=== PATIENT | female | born 1945 | race Caucasian/White ===

== ENCOUNTER → 2016-09-25 | Day surgery (SDC) | payer MEDICARE, OTHER ==
[~2016-09-25] MED LIST: DEXAMETHASONE SOD PHOS 4 MG/ML VIAL ONE; EPINEPHrine HCL (1:1000) 1 MG/ML VIAL ONE; LACTATED RINGER'S 1000 ML INJ 1,000 ML ONE; MIDAZOLAM HCL 2 MG/2 ML VIAL ONE; MOXIFLOXACIN 0.5% OPHT SOLN 3 ML BTL ONE; ONDANSETRON HCL 4 MG/2 ML VIAL IV PUSH ONE; PHENYLEPHRINE HCL 10% OPTH SOLN 5 ML BTL ONE; PROPOFOL 200 MG/20 ML AMP IV ONE; SODIUM CHLORIDE 0.9% INJ 10 ML ONE; TETRACAINE 0.5% OPTH SOLN 15 ML BTL ONE; TOBRAMYCIN/DEXAMETHASONE OPTH OINT 3.5 GM TUBE ONE; TRIAMCINOLONE ACETONIDE 40 MG/ML VIAL ONE; ceFAZolin INJ 1,000 MG VIAL ONE; prednisoLONE ACETATE 1% OPHT SUSP 5 ML BTL ONE
--- NOTE | 2016-09-26 20:24 | TN ---
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 PROCEDURE Pars plana vitrectomy, endolaser, anterior chamber reconstruction and placement of sulcus, posterior chamber intraocular lens right eye. IMPLANTS: MA60 AC, 22.0 diopter power. COMPLICATIONS: None. BLOOD LOSS: Less than 1 cc. ANESTHESIA: General. Dr. Last. INDICATIONS FOR PROCEDURE: This is a delightful patient who presented with difficult vision in her right eye. The patient has been aphakic and desired for surgical correction in an attempt to improve vision. The patient understands the risks, benefits and alternatives to surgery and cannot tolerate other corrective means. PROCEDURE NOTE After informed consent was obtained, the patient was brought to the operating room. General anesthesia was established. The right eye was prepped and draped in sterile fashion with Betadine on the conjunctival fornix. A three port pars vitrectomy was established with self-retaining infusion cannula. Core vitreous was evacuated. Vitreous traction relieved. Vitreous prolapse removed. The synechiae from the iris to the capsule was relieved and dissected. A plane was fashioned to support the posterior chamber intraocular lens and the sulcus. It appeared to have good sulcal support. An incision was made with 3.0 millimeter keratome and MA60 AC, 22.0 diopter power lens was inserted into the ciliary sulcus. This lens was rotated into position and appeared to be well centered. The scleral depressive examination revealed previous retinal tears with some surrounding scar. These areas were treated with endolaser. Intravitreal Kenalog was instilled. Sclerotomies removed and the clear corneal incision was closed with 10-0 nylon suture. Subconjunctival injection of Ancef and dexamethasone were given. The eye was patched with Tobramycin ointment. The patient was brought to the Recovery Room in stable condition. Continue follow up with [facility] for her postoperative care. MD LICHA Cooley/RAYMUNDO /6:43 PM /8:11 PM
== END | disposition home or self-care (01) ==
LOC: ESDC 07:38
PROVIDERS: ATTEND Ophthalmology
DX: H27.01 Aphakia, right eye (principal); H43.01 Vitreous prolapse, right eye
CPT/HCPCS: 00142; 00145; 66985; 67043; J0171; J0690; J1100; J2250; J2405; J3010; J3301; J7120; V2632

== ENCOUNTER → 2016-10-23 | Day surgery (SDC) | payer MEDICARE, OTHER ==
[~2016-10-23] MED LIST changes: +PROPOFOL 100 MG/10 ML INJ IV ONE; -PROPOFOL 200 MG/20 ML AMP IV ONE; +TRIAMCINOLONE ACETONIDE 40 MG/ML VIAL IM ONE; -TRIAMCINOLONE ACETONIDE 40 MG/ML VIAL ONE
--- NOTE | 2016-10-25 05:59 | TN ---
cc: LOS CONTRERAS MD DATE OF SURGERY 10/23/2016 DATE OF March 04, 1946. PREOPERATIVE DIAGNOSIS Dislocated anterior chamber intraocular lens, recurrent cystoid macular edema, retained cortex left eye. POSTOPERATIVE DIAGNOSIS Dislocated anterior chamber intraocular lens, recurrent cystoid macular edema, retained cortex left eye. PROCEDURE Pars plana vitrectomy, repositioning of anterior chamber intraocular lens, endolaser, insertion of intravitreal Kenalog, pars plana vitrectomy left eye, pars plana lensectomy left eye. ANESTHESIA general Gricelda. BLOOD LOSS Less than 1 cc. COMPLICATIONS None. INDICATIONS FOR PROCEDURE This delightful patient presented with recurrent cystoid macular edema in her left eye. On examination she was found to have a dislocated anterior chamber intraocular lens with the inferior haptic through an iris defect. The patient was also found to have some retained cortex from previous cataract surgery. The patient elected for surgical correction in hopes to lessen her recurrent cystoid macular edema. PROCEDURE NOTE After informed consent was obtained, the patient was brought to the operating room. General anesthesia was established. The left eye was prepped and draped in sterile fashion with Betadine in the conjunctival fornix. The three-port pars plana vitrectomy was established with the self-retaining infusion cannula. Vitreous traction was relieved with pars plana vitrectomy. The anterior chamber intraocular lens was assessed and inferior haptic seen extending into the inferior iris defect. Two clear corneal incisions were made with 20-gauge MVR blade and haptics of the anterior chamber intraocular lens were repositioned to the nasal and temporal position. The anterior chamber intraocular lens appeared stable in this position. Scleral depression examination revealed areas of superior retinal traction and thinning which were treated with endolaser. No untreated retinal holes, tears or detachments were seen. Intravitreal Kenalog was instilled. The trocars were removed and sclerotomies closed with 7-0 Vicryl suture. Subconjunctival injection of Ancef and dexamethasone were given. The eye was patched with Tobramycin ointment. The patient was brought to the recovery room in stable condition and to continue followup with [facility] for her postoperative care. Los Contreras MD KW/SSB /9:41 AM /5:42 AM
== END | disposition home or self-care (01) ==
LOC: ESDC 09:45
PROVIDERS: ATTEND Ophthalmology
DX: H27.122 Anterior dislocation of lens, left eye (principal); H59.032 Cystoid macular edema following cataract surgery, left eye
CPT/HCPCS: 00142; 00145; 66825; 67039; J0171; J0690; J1100; J2250; J2405; J3010; J3301; J7120